=== PATIENT | female | born 1950 | race Caucasian/White ===

== ENCOUNTER 2022-04-22 15:44 | Inpatient (IN) | payer MEDICARE ==
[2022-04-22 16:21] LABS: #Eosinphils 0.1 10x3/uL (0.0-0.5); #Monocytes 0.8 10x3/uL (0.0-1.1); #Neutrophils 5.5 10x3/uL (1.5-8.4); %Basophils 0.3 % (0.0-2.0); %Eosinophils 0.9 % (0.0-6.0); %Lymphocytes 14.9 % (18.0-47.0); %Monocytes 10.4 % (0.0-10.0); %Neutrophils 72.7 % (40.0-75.0); Hemoglobin 12.8 g/dL (12.0-15.5); Mean Corpuscular HGB CONC 31.7 g/dL (32.0-36.0); Mean Corpuscular Hemoglobin 27.4 pg (27.0-33.0); Mean Corpuscular Volume 86.5 fl (81.6-98.3); Mean Platelet Volume 10.4 fl (7.4-10.4); Platelet Count 263 10x3/uL (150-450); Red Blood Cell (RBC) Count 4.67 10x6/uL (3.90-5.03); White Blood Cell (WBC) Count 7.6 10x3/uL (3.5-10.5)
[2022-04-22 16:37] LABS: ALT (SGPT) 28 U/L (8-55); AST (SGOT) 29 U/L (5-34); Albumin 3.8 g/dL (3.4-4.8); Alkaline Phosphatase 39 U/L (40-110); Anion Gap 16 mmol/L (10-20); BUN (Urea Nitrogen) 12 mg/dL (9.8-20.1); Bilirubin, Total 0.4 mg/dL (0.2-1.2); Calc. Creatinine Clearance 0 mL/min (70-130); Calcium 8.9 mg/dL (7.8-10.44); Carbon Dioxide 22 mmol/L (23-31); Chloride 106 mmol/L (98-107); Estimated GFR 74; Glucose 103 mg/dL (83-110); Potassium 3.8 mmol/L (3.5-5.1); Protein, Total 5.8 g/dL (5.8-8.1); Sodium 140 mmol/L (136-145)
[2022-04-22 17:07] LABS: INR-International Normal Ratio 0.9; PTT 23.3 sec (22.0-33.0); Prothrombin Time 9.8 sec (9.5-12.1)
[2022-04-22] MEDS ORDERED: Ondansetron PF 4 MG/2 ML Vial ONE (18:09)
[2022-04-22] MEDS ORDERED: Acetaminophen 500 MG TAB ONE (18:16)
[2022-04-22] MEDS ORDERED: Acetaminophen 650 MG Suppository PR PRN (18:22)
[2022-04-22] MEDS ORDERED: Ondansetron PF 4 MG/2 ML Vial IVP PRN (18:22)
[2022-04-22] MEDS ORDERED: HYDROcodone/Acetaminophen 5/325 mg Tablet PO PRN (18:22)
[2022-04-22] MEDS ORDERED: Meclizine HCl 12.5 MG TAB PO PRN (18:24)
[2022-04-22] MEDS ORDERED: Promethazine HCl 12.5 MG, Admixture Fee 1 EACH in Sodium Chloride 0.9% 50 ML IVPB PRN (20:06)
[2022-04-22 21:31] VITALS: BMI 29.2
[2022-04-22] MEDS ORDERED: Heparin 5,000 UNITS/ML VIAL SC SCH (21:45)
[2022-04-23 04:53] LABS: #Monocytes 0.3 10x3/uL (0.0-1.1); #Neutrophils 4.2 10x3/uL (1.5-8.4); %Basophils 0.2 % (0.0-2.0); %Eosinophils 0.8 % (0.0-6.0); %Lymphocytes 13.4 % (18.0-47.0); %Monocytes 6.4 % (0.0-10.0); %Neutrophils 78.6 % (40.0-75.0); Hemoglobin 12.1 g/dL (12.0-15.5); Mean Corpuscular Hemoglobin 27.5 pg (27.0-33.0); Mean Corpuscular Volume 88.6 fl (81.6-98.3); Mean Platelet Volume 10.7 fl (7.4-10.4); Platelet Count 240 10x3/uL (150-450); RBC Distribution Width 15.9 % (11.5-14.5); White Blood Cell (WBC) Count 5.3 10x3/uL (3.5-10.5)
[2022-04-23 05:01] LABS: ALT (SGPT) 22 U/L (8-55); AST (SGOT) 18 U/L (5-34); Albumin 3.3 g/dL (3.4-4.8); Alkaline Phosphatase 39 U/L (40-110); Anion Gap 11 mmol/L (10-20); BUN (Urea Nitrogen) 10 mg/dL (9.8-20.1); Bilirubin, Total 0.4 mg/dL (0.2-1.2); Calc. Creatinine Clearance 86 mL/min (70-130); Calcium 9.1 mg/dL (7.8-10.44); Carbon Dioxide 26 mmol/L (23-31); Chloride 111 mmol/L (98-107); Estimated GFR 75; Globulin 2.3 g/dL (2.4-3.5); Glucose 144 mg/dL (83-110); Protein, Total 5.6 g/dL (5.8-8.1); Sodium 143 mmol/L (136-145)
[2022-04-23] MEDS ORDERED: Levothyroxine Sodium 75 MCG TAB PO SCH (06:00)
[2022-04-23] MEDS: Heparin 5,000 UNITS/ML VIAL SC SCH ×2 (08:20→15:50)
[2022-04-23] MEDS ORDERED: azaTHIOprine 50 MG TAB PO SCH (09:00)
[2022-04-23] MEDS ORDERED: Aspirin 81 mg Enteric Coated Tablet PO SCH (09:00)
[2022-04-23] MEDS ORDERED: Cholecalciferol 1,000 UNITS (25 MCG) TAB PO SCH (09:00)
[2022-04-23] MEDS ORDERED: DULoxetine 30 MG CAP PO SCH (09:00)
[2022-04-23] MEDS ORDERED: Atorvastatin Calcium 40 MG TAB PO SCH (09:00)
[2022-04-23 09:20] LABS: Cardiac Risk 2.5 (Less than 4.5)
[2022-04-23 14:13] LABS: Hemoglobin A1c 6.3 % (4.0-6.0)
[2022-04-23 16:07] VITALS: BP 117/72; TEMP 97.9
== END 2022-04-23 16:22 | disposition home or self-care (01) | DRG 149 ==
LOC: SUATTDRO 15:44 → CSHERS 15:44 → CSHTELE 17:44
PROVIDERS: ADMIT Internal Medicine; ATTEND Internal Medicine
DX: H83.2X9 Labyrinthine dysfunction, unspecified ear (principal); E03.9 Hypothyroidism, unspecified; D86.9 Sarcoidosis, unspecified; Z86.73 Personal history of transient ischemic attack (TIA), and cerebral infarction without residual deficits; Z95.0 Presence of cardiac pacemaker; Z88.5 Allergy status to narcotic agent; Z88.8 Allergy status to other drugs, medicaments and biological substances; Z88.0 Allergy status to penicillin; Z88.2 Allergy status to sulfonamides; Z20.822 Contact with and (suspected) exposure to COVID-19
CPT/HCPCS: 36415; 36416; 70450; 70551; 71045; 80053; 80061; 83036; 84443; 84484; 85025; 85610; 85730; 93005; 93306; 93880; 96374; 96376; J1644; J2405; J2550; J7500; U0003; U0005